=== PATIENT | female | born 1930 | race Caucasian/White ===

== ENCOUNTER → 2017-04-25 | Outpatient (CLI) | payer MEDICARE ==
[~2017-04-25] MED LIST: ASPI81TA11 PO; CALC500T21 PO; CIPR500T2 PO; COZA100T PO; CYAN1000P IM; FURO1TAB93 PO; LOPR100T2 PO; NORV10TA PO; OCUVTAB4 PO; POTA20IN3 PO; SIMV20 PO; SYST0.4D2 EACH EYE
[2017-04-25 13:19] LABS: AUTOMATED NEUTROPHIL # 2.6 TH/MM3 (1.8-7.7); BASOPHIL % 0.8 % (0.0-2.0); EOSINOPHIL # 0.2 TH/MM3 (0-0.4); EOSINOPHIL % 3.7 % (0.0-4.0); HEMATOCRIT 36.5 % (35.0-46.0); HEMO FLAGS DIFF FINAL; LYMPHOCYTE # 1.4 TH/MM3 (1.0-4.8); MEAN CELL VOLUME 92.4 FL (80.0-100.0); MEAN CORPUSCULAR HGB CONC 32.4 % (32.0-36.0); NEUT % 54.5 % (16.0-70.0); PLATELET COUNT 178 TH/MM3 (150-450); RED BLOOD COUNT 3.95 MIL/MM3 (4.00-5.30); RED CELL DISTRIBUTION WIDTH 14.5 % (11.6-17.2); WHITE BLOOD COUNT 4.8 TH/MM3 (4.0-11.0)
[2017-04-25 13:30] LABS: ANION GAP 10 MEQ/L (5-15); AST (GOT) 30 U/L (15-37); BICARBONATE 27.5 MEQ/L (21.0-32.0); BLOOD UREA NITROGEN 17 MG/DL (7-18); CHLORIDE 104 MEQ/L (98-107); GLOMERULAR FILTRATION RATE 102 ML/MIN (>89); GLUCOSE,FASTING 89 MG/DL (74-99); POTASSIUM 3.7 MEQ/L (3.5-5.1); SODIUM (NA) 141 MEQ/L (136-145)
[2017-04-25 13:41] LABS: ALKALINE PHOSPHATASE 91 U/L (45-117); ALT (GPT) 35 U/L (10-53); HDL CHOLESTEROL 116.5 MG/DL (40.0-60.0); LDL CHOLESTEROL 65 MG/DL (0-99); TOTAL BILIRUBIN ADULT 0.8 MG/DL (0.2-1.0)
== END ==
LOC: PLAB 08:05
PROVIDERS: ATTEND Internal Medicine
DX: I48.0 Paroxysmal atrial fibrillation (principal); I10 Essential (primary) hypertension
CPT/HCPCS: 36415; 80053; 80061; 84443; 85025

== ENCOUNTER 2017-08-06 08:34 | Observation (INO) | payer MEDICARE ==
[~2017-08-06] VITALS: Ht 154.9 cm; Wt 58.1 kg
[2017-08-06] VITALS (8 sets, daily range): BP systolic 149–158; BP diastolic 72–81; PULSE 59–63; RESP 16–20; TEMP 97–98.1; O2SAT 97–98
[2017-08-06] MEDS ORDERED: LOSA100T PO (09:04)
[2017-08-06] MEDS ORDERED: SIMV20TA PO (09:04)
[2017-08-06] MEDS ORDERED: AMLO5 PO (09:04)
[2017-08-06] MEDS ORDERED: METO25TA3 PO (09:04)
[2017-08-06] MEDS ORDERED: XARE20TA PO (09:04)
[2017-08-06] MEDS ORDERED: CALC1TAB55 PO (09:04)
[2017-08-06] MEDS ORDERED: OCUVTAB4 PO (09:04)
[2017-08-06] MEDS ORDERED: SODIUM CHLORIDE 0.9% FLUSH 10 ML FLUSH IVF PRN (09:30)
[2017-08-06 09:46] LABS: AUTOMATED NEUTROPHIL # 4.8 TH/MM3 (1.8-7.7); BASOPHIL # 0.1 TH/MM3 (0-0.2); BASOPHIL % 0.9 % (0.0-2.0); EOSINOPHIL # 0.1 TH/MM3 (0-0.4); EOSINOPHIL % 1.4 % (0.0-4.0); HEMATOCRIT 36.4 % (35.0-46.0); HEMO FLAGS DIFF FINAL; LYMPH % 19.6 % (9.0-44.0); LYMPHOCYTE # 1.4 TH/MM3 (1.0-4.8); MEAN CORPUSCULAR HEMOGLOBIN 30.5 PG (27.0-34.0); MEAN CORPUSCULAR HGB CONC 33.2 % (32.0-36.0); MONO % 8.3 % (0.0-8.0); NEUT % 69.8 % (16.0-70.0); PLATELET COUNT 204 TH/MM3 (150-450); RED BLOOD COUNT 3.96 MIL/MM3 (4.00-5.30); RED CELL DISTRIBUTION WIDTH 13.4 % (11.6-17.2)
[2017-08-06 09:57] LABS: CHLORIDE 104 MEQ/L (98-107); POTASSIUM 4.2 MEQ/L (3.5-5.1); SODIUM (NA) 139 MEQ/L (136-145)
[2017-08-06 09:58] LABS: ANION GAP 8 MEQ/L (5-15); BICARBONATE 27.3 MEQ/L (21.0-32.0); INTERNATIONAL NORMALIZED RATIO 1.1 RATIO; PROTHROMBIN TIME - PATIENT 12.7 SEC (9.8-11.6)
[2017-08-06 09:59] LABS: BLOOD UREA NITROGEN 18 MG/DL (7-18)
[2017-08-06 10:02] LABS: GLOMERULAR FILTRATION RATE 89 ML/MIN (>89)
--- NOTE | 2017-08-06 10:13 | RADRPT ---
EXAM DATE/TIME: 08/06/2017 09:39 [facility] COMPARISON: CT BRAIN W/O CONTRAST, March 07, 2013, 11:22. INDICATIONS : General weakness. Evaluate for cerebrovascular accident. RADIATION DOSE: 61.67 CTDIvol (mGy) MEDICAL HISTORY : Carcinoma, lung. Myocardial infarction. Gastroesophageal reflux disease.Hypertension. [place] palsy. Traumatic brain injury. SURGICAL HISTORY : Craniotomy. Lobectomy. ENCOUNTER: Initial ACUITY: 1 day PAIN SCALE: 0/10 LOCATION: cranial TECHNIQUE: Multiple contiguous axial images were obtained of the head. Using automated exposure control and adj ustment of the mA and/or kV according to patient size, radiation dose was kept as low as reasonably a chievable to obtain optimal diagnostic quality images. DICOM format image data is available electro nically for review and comparison. FINDINGS: Noncontrast axial head CT demonstrates the ventricles to be normal in size and configuration with a n ormal sulcal pattern. No acute intracranial hemorrhage, acute cortical infarction, mass or midline sh ift is seen. Posterior fossa structures are unremarkable. Bone windows are unremarkable. There is previous left frontal craniotomy CONCLUSION: 1. No evidence of acute intracranial pathology. No masses are identified. Toy Rick MD on August 06, 2017 at 9:59 Board Certified Radiologist. This report was verified electronically.
--- NOTE | 2017-08-06 10:23 | RADRPT ---
EXAM DATE/TIME: 08/06/2017 09:31 [facility] COMPARISON: CHEST SINGLE AP, September 05, 2016, 6:44. INDICATIONS : Chest pain. MEDICAL HISTORY : Gastroesophageal reflux disease. Hypertension Carcinoma, lung. Transient ischemic accident, bells palsy, trigeminal neuralgia, atrial fibrilation, asthma, myocardial infarction SURGICAL HISTORY : Rt lower lobe resection, cardaic cath ENCOUNTER: Initial ACUITY: 1 day PAIN SCORE: 2/10 LOCATION: Bilateral chest FINDINGS: Mild cardiomegaly, minimal interstitial edema. No pneumothorax or pleural effusion. The portion of t he bony skeleton visualized is unremarkable. CONCLUSION: Mild compensated cardiomegaly. Boubacar Degroot MD FACR on August 06, 2017 at 10:21 Board Certified Radiologist. This report was verified electronically.
[2017-08-06 10:28] LABS: BLOOD, URINE NEG (NEG); GLUCOSE,URINE NEG (NEG); KETONE, URINE NEG (NEG); NITRITE,URINE POS (NEG); PH, URINE 6.5 (5.0-8.5)
[2017-08-06 10:33] LABS: METHOD OF COLLECTION CLEAN CATCH; RBC, URINE 0-3 /hpf (0-3); URINE COLOR YELLOW (YELLW/STRAW); WBC, URINE 100-200 /hpf (0-5)
[2017-08-06 10:34] LABS: BACTERIA, URINE MANY /hpf; COMMENT (UR) CULTURE INDICATED; CULTURE IF INDICATED CULTURE INDICATED; SQUAMOUS EPITHELIAL CELL URINE 0-5 /hpf (0-5)
--- NOTE | 2017-08-06 10:47 | PD ---
HPI Chief Complaint: General Weakness Time Seen by Provider: 08:40 Travel History International Travel<30 days: No Contact w/Intl Traveler<30days: No Traveled to known affect area: No History of Present Illness HPI 87-year-old female came to the emergency room with history of palpitations, chest pain for past 2 days. Yesterday she also noticed that right side of her face was having some tingling and numbness. Patient has multiple medical condition and issues. She was very concerned and hence decided to come to the emergency room. The chest pain comes and goes and it substernal. The tingling and numbness stayed for couple hours and then went away. Patient seems anxious. No radiation of the pain and it feels like burning sensation. Pain does not have any aggravating or relieving factors. Patient has history of paroxysmal atrial fibrillation and she is on Xarelto for that. Her last cardiac catheter was in 2009. [facility] Past Medical History Narrative Medical List of her past medical, surgical, social and family history reviewed from the nursing note. Hx Anticoagulant Therapy: Yes Arthritis: Yes (a couple of fingers sometimes) Asthma: Yes Atrial Fibrillation: Yes Autoimmune Disease: Yes (STAPH INFECTION) Blood Disorders: No Anxiety: No Depression: No Heart Rhythm Problems: Yes (occ. palpatations) Cancer: Yes (LUNG) Cardiac Catheterization: Yes (2009) Cardiovascular Problems: Yes (HTN, A FIB) High Cholesterol: Yes Chemotherapy: No Chest Pain: No Congestive Heart Failure: No COPD: No Cerebrovascular Accident: Yes (TIA) Diabetes: No Diminished Hearing: No Endocrine: No Gastrointestinal Disorders: Yes (GERD) GERD: Yes Glaucoma: No Genitourinary: No Headaches: Yes (trigeminal neuralgia) Hepatitis: No Hiatal Hernia: No Heparin Induced Thrombocytopen: No Hypertension: Yes Immune Disorder: No Implanted Vascular Access Dvce: No Kidney Stones: No Medical other: Yes (ALLERGIES. POST NASAL DRIP) Musculoskeletal: Yes (OCCAS NECK DISCOMFORT) Neurologic: Yes (SUBDURAL HEMATOMA, TRIGEMINAL NEURALGIA, MI'S PALSY) Psychiatric: No Reproductive: No Immunizations Current: Yes Migraines: No Myocardial Infarction: Yes Radiation Therapy: No Renal Failure: No Seizures: No Shingles: Yes Sickle Cell Disease: No Sleep Apnea: No Thyroid Disease: No Ulcer: No PNEUMOCCOCAL Vaccine (Year): 1 ?: Not Menopausal: Yes : 2 Para: 2 Past Surgical History Abdominal Surgery: No AICD: No Appendectomy: No Arteriovenous Shunt: No Body Medical Devices: NONE Cardiac Surgery: No Cholecystectomy: No Ear Surgery: No Endocrine Surgery: No Eye Surgery: Yes (BILATERAL CATARACT) Genitourinary Surgery: No Gynecologic Surgery: Yes Insulin Pump: No Joint Replacement: No Neurologic Surgery: Yes (CRANIOTOMY FOR SUBDURAL HEMORRHAGE, SURGERY FOR TRIGEMINAL NEURALGIA) Oral Surgery: No Pacemaker: No Thoracic Surgery: Yes (RIGHT LOWER LUNG RESECTION) Other Surgery: Yes Social History Alcohol Use: Yes (2 DRINKS, DAILY) Tobacco Use: No (QUIT 1960S) Substance Use: No Allergies-Medications (Allergen,Severity, Reaction): Coded Allergies: lorazepam (Unverified Allergy, Severe, Hallucinations, 08/06/17) nitroglycerin (Unverified Allergy, Severe, 08/06/17) NITRO PATCH. 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 Reported Meds & Prescriptions Reported Meds & Active Scripts Active Reported Metoprolol Tartrate 25 Mg Tab 25 Mg PO BID Preservision Areds (Multiple Vitamins W/ Minerals) 1 Tab 2 Tab PO DAILY Calcium 500 +D3 (Calcium Carbonate-Cholecalciferol) 500-600 Mg-Unit Tab 1 Tab PO DAILY Xarelto (Rivaroxaban) 20 Mg Tab 20 Mg PO DAILY Simvastatin 20 Mg Tab 20 Mg PO DAILY Losartan (Losartan Potassium) 100 Mg Tab 100 Mg PO DAILY Norvasc (Amlodipine Besylate) 5 Mg Tab 5 Mg PO DAILY Narrative Medication List of her home medications are reviewed from the nursing note. Review of Systems Except as stated in HPI: all other systems reviewed are Neg Physical Exam Narrative GENERAL: Awake, alert, elderly, anxious, mild distress SKIN: Focused skin assessment warm/dry. HEAD: Atraumatic. Normocephalic. EYES: Pupils equal and round. No scleral icterus. No injection or drainage. ENT: No nasal bleeding or discharge. Mucous membranes pink and moist. NECK: Trachea midline. No JVD. CARDIOVASCULAR: Regular rate and rhythm. No murmur appreciated. RESPIRATORY: No accessory muscle use. Clear to auscultation. Breath sounds equal bilaterally. GASTROINTESTINAL: Abdomen soft, non-tender, nondistended. Hepatic and splenic margins not palpable. MUSCULOSKELETAL: No obvious deformities. No clubbing. No cyanosis. No edema. NEUROLOGICAL: Awake and alert. No obvious cranial nerve deficits. Motor grossly within normal limits. Normal speech. PSYCHIATRIC: Appropriate mood and affect; insight and judgment normal. Data Data Last Documented VS Orders Orders Prothrombin Time / Inr (Pt) (08/06/17 09:18) Complete Blood Count With Diff (08/06/17 09:18) Basic Metabolic Panel (Bmp) (08/06/17 09:18) Troponin I (08/06/17 09:18) Urinalysis - C+S If Indicated (08/06/17 09:18) Ct Brain W/O Iv Contrast(Rout) (08/06/17 09:18) Chest, Single Ap (08/06/17 09:18) Ecg Monitoring (08/06/17 09:18) Iv Access Insert/Monitor (08/06/17 09:18) Oximetry (08/06/17 09:18) Sodium Chloride 0.9% Flush (Ns Flush) (08/06/17 09:30) Urine Culture (08/06/17 09:55) Admit Order (Ed Use Only) (08/06/17 10:51) Labs Laboratory Tests Test 08/06/17 09:30 08/06/17 09:55 White Blood Count 7.0 TH/MM3 Red Blood Count 3.96 MIL/MM3 Hemoglobin 12.1 GM/DL Hematocrit 36.4 % Mean Corpuscular Volume 92.0 FL Mean Corpuscular Hemoglobin 30.5 PG Mean Corpuscular Hemoglobin Concent 33.2 % Red Cell Distribution Width 13.4 % Platelet Count 204 TH/MM3 Mean Platelet Volume 8.5 FL Neutrophils (%) (Auto) 69.8 % Lymphocytes (%) (Auto) 19.6 % Monocytes (%) (Auto) 8.3 % Eosinophils (%) (Auto) 1.4 % Basophils (%) (Auto) 0.9 % Neutrophils # (Auto) 4.8 TH/MM3 Lymphocytes # (Auto) 1.4 TH/MM3 Monocytes # (Auto) 0.6 TH/MM3 Eosinophils # (Auto) 0.1 TH/MM3 Basophils # (Auto) 0.1 TH/MM3 CBC Comment DIFF FINAL Differential Comment Prothrombin Time 12.7 SEC Prothromb Time International Ratio 1.1 RATIO Blood Urea Nitrogen 18 MG/DL Creatinine 0.63 MG/DL Random Glucose 101 MG/DL Calcium Level 8.8 MG/DL Sodium Level 139 MEQ/L Potassium Level 4.2 MEQ/L Chloride Level 104 MEQ/L Carbon Dioxide Level 27.3 MEQ/L Anion Gap 8 MEQ/L Estimat Glomerular Filtration Rate 89 ML/MIN Hemoglobin A1c 5.6 % Troponin I LESS THAN 0.02 NG/ML Urine Collection Type CLEAN CATCH Urine Color YELLOW Urine Turbidity SLIGHT Urine pH 6.5 Urine Specific [place] 1.009 Urine Protein NEG mg/dL Urine Glucose (UA) NEG mg/dL Urine Ketones NEG mg/dL Urine Occult Blood NEG Urine Nitrite POS Urine Bilirubin NEG Urine Leukocyte Esterase MOD Urine RBC 0-3 /hpf Urine WBC 100-200 /hpf Urine WBC Clumps MOD Urine Squamous Epithelial Cells 0-5 /hpf Urine Bacteria MANY /hpf Microscopic Urinalysis Comment CULTURE INDICATED Urine Collection Time 09:55 MDM Medical Decision Making Medical Screen Exam Complete: Yes Emergency Medical Condition: Yes Medical Record Reviewed: Yes Interpretation(s) Twelve-lead EKG was reviewed by me. Normal sinus rhythm, normal axis, LVH by voltage criteria, lateral T wave inversions. Heart rate of 68 bpm. Differential Diagnosis ACS, non-STEMI, TIA, UTI, electrolyte abnormalities Narrative Course 10:30 AM blood test results were back and within acceptable limit. UA is clear. CT head is negative for any acute bleed. I would admit her for TIA at this point. Procedures EKG Prior to Arrival: No Diagnosis Primary Impression: TIA (transient ischemic attack) Qualified Codes: G45.9 - Transient cerebral ischemic attack, unspecified Additional Impression: Chest pain Qualified Codes: R07.9 - Chest pain, unspecified Admitting Information Admitting Physician Requests: Cara Grady MD Aug 06, 2017 10:47
[2017-08-06] MEDS ORDERED: ENALAPRILAT 1.25 MG/ML VIAL IV PUSH PRN (11:15)
[2017-08-06] MEDS ORDERED: SODIUM CHLORIDE 0.9% FLUSH 5 ML FLUSH IV FLUSH PRN (11:15)
[2017-08-06] MEDS ORDERED: GLUCAGON 1 MG/ML VIAL OTHER PRN (11:15)
[2017-08-06] MEDS ORDERED: DEXTROSE 50% IN WATER 50 ML VIAL(D50) IV PUSH PRN (11:15)
[2017-08-06] MEDS: INSULIN ASPART SUPPLEMENTAL SCALE SQ SCH ×3 (12:00→21:00)
--- NOTE | 2017-08-06 15:58 | RADRPT ---
EXAM DATE/TIME: 08/06/2017 15:23 [facility] COMPARISON: US CAROTID ARTERIES, December 11, 2011, 13:40. EXTERNAL COMPARISON : [facility], US CAROTID ARTERIES, December 08, 2009 INDICATIONS : Cerebrovascular accident. MEDICAL HISTORY : Hypertension. Gastroesophageal reflux disease. Hypercholesterolemia. Subdural h ematoma. Trigeminal neuralgia. Hartley's palsy. tia. atrial fibrillation. anticoagulant therapy. lung ca ncer. SURGICAL HISTORY : Cataracts removed. Craniotomy. Surgery for trigeminal neuralgia. Cardiac catheterization. Right lower lung resection. ENCOUNTER: Subsequent ACUITY: 1 day PAIN SCORE: 1/10 LOCATION: Bilateral neck PEAK SYSTOLIC VELOCITIES (cm/sec): ICA/CCA RATIO: Right: 1.8 Left: 1.5 ICA: Right: 104 Left: 77 CCA: Right: 57 Left: 52 ECA: Right: 55 Left: 42 VERTEBRAL: Right: 33 antegrade Left: 26 antegrade Elevated flow velocities and ICA/CCA ratios have been found to correlate with increased degrees of vessel stenosis, calculated as percentage of diameter relative to a normal segment of distal ICA/CCA FINDINGS: RIGHT CAROTID: There is minimal elevated ratio on the right with normal velocities. Moderate calcific plaque is noted noted. LEFT CAROTID: Moderate calcific plaque. No significant stenosis is visualized. The waveforms are within normal limits. VERTEBRAL ARTERIES: Antegrade flow is seen in both vertebral arteries. MISCELLANEOUS: None. CONCLUSION: Progression of the calcific plaque borderline significant on the right. Boubacar Degroot MD FACR on August 06, 2017 at 15:55 Board Certified Radiologist. This report was verified electronically.
--- NOTE | 2017-08-06 16:11 | RADRPT ---
EXAM DATE/TIME: 08/06/2017 14:42 [facility] COMPARISON: MRI BRAIN W/O CONTRAST, June 13, 2013, 8:46. INDICATIONS : Right sided weakness. MEDICAL HISTORY : Carcinoma, lung. Hypertension. SURGICAL HISTORY : Lobectomy. Craniotomy. ENCOUNTER: Initial ACUITY: 2 day PAIN SCORE: 0/10 LOCATION: Head TECHNIQUE: Multiplanar, multisequence MRI of the brain was performed without contrast. FINDINGS: MRI of the brain is performed in sagittal, axial and coronal planes. The craniocervical junction and midline structures are unremarkable. Diffusion weighted images demonstrate no abnormality. There is n o evidence of acute cortical infarction, acute hemorrhage, mass effect or midline shift is seen. Ther e is periventricular hyperintensity on the T2 weighted images consistent with small vessel vascular d isease slightly more than expected in a patient of this age. Posterior fossa structures are unremarka ble. CONCLUSION: 1. No evidence of acute intracranial pathology. Chronic ischemic changes as above. Toy Rick MD on August 06, 2017 at 15:55 Board Certified Radiologist. This report was verified electronically.
--- NOTE | 2017-08-06 16:12 | RADRPT ---
EXAM DATE/TIME: 08/06/2017 14:42 [facility] COMPARISON: No previous studies available for comparison. INDICATIONS : Right sided weakness. MEDICAL HISTORY : Carcinoma, lung. Hypertension. SURGICAL HISTORY : Lobectomy. Craniotomy. ENCOUNTER: Initial ACUITY: 2 day PAIN SCORE: 0/10 LOCATION: head Please note a normal MRA of the brain does not entirely exclude the possibility of a small aneurysm, nor the possibility of distal intracranial vessel disease. TECHNIQUE: 3D time of flight MRA was performed. Source images, multiplanar STS MIP, and 3D volume MIP reconstru ctions were reviewed. FINDINGS: There is excellent visualization of the major intracranial arteries out to the second-order branch ve ssels. There is no evidence for aneurysm, vessel truncation or stenosis, and no evidence for vascula r malformation. CONCLUSION: 1. Unremarkable MR angiography of the brain. Toy Rick MD on August 06, 2017 at 16:09 Board Certified Radiologist. This report was verified electronically.
[2017-08-06] MEDS ORDERED: cefTRIAXone INJ 1,000 MG in SODIUM CHLORIDE 0.9% INJ 100 ML IV SCH (17:00)
--- NOTE | 2017-08-06 18:00 | HHI.HP ---
[facility] Ty Mathews MD Admission Diagnosis TIA, chest Diagnoses: (1) Paresthesia (2) Chest pain Chief Complaint: Paresthesia, right hand, right upper lip numbness. Travel History International Travel<30 Days: No Contact w/Intl Traveler <30 Da: No Traveled to Known Affected Are: No History of Present Illness Written by Rojelio Pearce, acting as scribe for Dr. Lee on 08/06/17 at 17: 50. 87-year-old female with known history of paroxysmal atrial fibrillation, hypertension, history CVA, history of subdural hematoma, trigeminal neuralgia, history of lung cancer who presented to the emergency department because of neurological symptoms. Patient states that she was in her normal state of health until yesterday morning she got out of bed she noticed that the top part of the right side of her head with had a tingling sensation that she developed a right hand, right upper lip numbness which lasted for a couple seconds and went away on its own. She indicates that she does have intermittent chest discomfort which she describes a numbness around her upper abdomen and lower chest. She does go to her own railroad brake operator Dr. Richard, she indicates that every year he does a full workup to include stress test and echocardiogram. She states that her last workup was done in November/ December of this year and everything was normal. She states that she just saw her railroad brake operator 1 month ago. She denies any associated symptoms with this chest discomfort. She denies any nausea, vomiting, diaphoresis, shortness of breath, dyspnea, dizziness. Because of the patient's cardiac history, history of CVA/TIA is recommended by the ER physician that the patient be observed in the hospital for further evaluation and management. Review of Systems Cardiovascular: COMPLAINS OF: Chest pain Neurologic: COMPLAINS OF: Paresthesias Except as stated in HPI: all other systems reviewed are Neg Past Family Social History Past Medical History Paroxysmal atrial fibrillation Hypertension History of CVA/TIA History of lung cancer Gastroesophageal reflux History of subdural hematoma History of trigeminal neuralgia History of Hartley's palsy History of shingles Past Surgical History Bilateral cataract surgery Surgery for trigeminal neuralgia Surgery for evacuation of subdural hematoma Right lower lung lobectomy Allergies: Coded Allergies: lorazepam (Unverified Allergy, Severe, Hallucinations, 08/06/17) nitroglycerin (Unverified Allergy, Severe, 08/06/17) NITRO PATCH. 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 She quit smoking in 1949. Denies any illicit drugs Physical Exam Vital Signs Vital Signs Date Time Temp Pulse Resp B/P (MAP) Pulse Ox O2 Delivery O2 Flow Rate FiO2 08/06/17 17:13 59 08/06/17 13:32 98 21 08/06/17 12:21 08/06/17 10:14 60 16 158/72 (100) 98 Room Air 08/06/17 09:36 98 Room Air 08/06/17 08:54 98.1 61 18 149/81 (103) 98 Physical Exam GENERAL: Well-developed, well-nourished, in no acute distress. alert and orientated HEENT: Head is normocephalic without any lesions or masses noted. Facial features are symmetric. Eyes: Pupils equal round reactive to light. Extraocular muscles are intact. Conjunctivae were clear. Oropharyngeal: Pharynx without any erythema edema. Tongue is midline without deviation. Buccal mucosa is moist without any masses or lesions NECK: Supple without any masses. Trachea midline no deviation. No JVD, no bruits are appreciated CARDIAC: Regular rhythm, regular rate. S1/S2 are heard. No murmurs gallops or rubs. LUNGS: Clear to auscultation bilaterally. No wheeze, rhonchi or rales. No use of accessory muscles on inspiration or expiration. ABDOMEN: Soft, nontender. Nondistended. Bowel sounds heard in all 4 quadrants. No organomegaly or masses. Negative rebound, negative guarding EXTREMITIES: No edema, pulses are equal bilaterally. No cyanosis or clubbing NEUROLOGY: Mood and affect appear appropriate. Cranial nerves II through XII grossly intact. Muscle strength 5/5 in upper and lower extremities bilaterally. Deep tendon reflexes are 2+ in upper and lower extremities bilaterally. Laboratory Laboratory Tests Test 08/06/17 09:30 08/06/17 09:55 White Blood Count 7.0 Red Blood Count 3.96 Hemoglobin 12.1 Hematocrit 36.4 Mean Corpuscular Volume 92.0 Mean Corpuscular Hemoglobin 30.5 Mean Corpuscular Hemoglobin Concent 33.2 Red Cell Distribution Width 13.4 Platelet Count 204 Mean Platelet Volume 8.5 Neutrophils (%) (Auto) 69.8 Lymphocytes (%) (Auto) 19.6 Monocytes (%) (Auto) 8.3 Eosinophils (%) (Auto) 1.4 Basophils (%) (Auto) 0.9 Neutrophils # (Auto) 4.8 Lymphocytes # (Auto) 1.4 Monocytes # (Auto) 0.6 Eosinophils # (Auto) 0.1 Basophils # (Auto) 0.1 CBC Comment DIFF FINAL Differential Comment Prothrombin Time 12.7 Prothromb Time International Ratio 1.1 Blood Urea Nitrogen 18 Creatinine 0.63 Random Glucose 101 Calcium Level 8.8 Sodium Level 139 Potassium Level 4.2 Chloride Level 104 Carbon Dioxide Level 27.3 Anion Gap 8 Estimat Glomerular Filtration Rate 89 Troponin I LESS THAN 0.02 Urine Collection Type CLEAN CATCH Urine Color YELLOW Urine Turbidity SLIGHT Urine pH 6.5 Urine Specific [place] 1.009 Urine Protein NEG Urine Glucose (UA) NEG Urine Ketones NEG Urine Occult Blood NEG Urine Nitrite POS Urine Bilirubin NEG Urine Leukocyte Esterase MOD Urine RBC 0-3 Urine WBC 100-200 Urine WBC Clumps MOD Urine Squamous Epithelial Cells 0-5 Urine Bacteria MANY Microscopic Urinalysis Comment CULTURE INDICATED Urine Collection Time 09:55 Date/Time Source Procedure Growth Status 08/06/17 09:55 Urine Clean Catch Urine Culture Pending Received Result Diagram: 08/06/1792908/06/17929 Imaging Last Impressions Head CT 08/06/17917 Signed Impressions: Service Date/Time: Sunday, August 06, 2017 09:39 - CONCLUSION: 1. No evidence of acute intracranial pathology. No masses are identified. Toy Rick MD Chest X-Ray 08/06/17917 Signed Impressions: Service Date/Time: Sunday, August 06, 2017 09:31 - CONCLUSION: Mild compensated cardiomegaly. Boubacar Dergoot MD FACR Head Magnetic Resonance Angiography 08/06/17 Signed Impressions: Service Date/Time: Sunday, August 06, 2017 14:42 - CONCLUSION: 1. Unremarkable MR angiography of the brain. Toy Rick MD Carotid Artery Ultrasound 08/06/17 Signed Impressions: Service Date/Time: Sunday, August 06, 2017 15:23 - CONCLUSION: Progression of the calcific plaque borderline significant on the right. Boubacar Degroot MD FACR Brain MRI 08/06/17 Signed Impressions: Service Date/Time: Sunday, August 06, 2017 14:42 - CONCLUSION: 1. No evidence of acute intracranial pathology. Chronic ischemic changes as above. Toy Rick MD Capmikali VTE Risk Assessment Caprini VTE Risk Assessment: Mod/High Risk (score >= 2) Caprini Risk Assessment Model Point Value = 1 Point Value = 2 Point Value = 3 Point Value = 5 Age 41-60 Minor surgery BMI > 25 kg/m2 Swollen legs Varicose veins or History of unexplained or recurrent spontaneous Oral contraceptives or hormone replacement Sepsis (< 1 month) Serious lung disease, including pneumonia (< 1 month) Abnormal pulmonary function Acute myocardial infarction Congestive heart failure (< 1 month) History of inflammatory bowel disease Medical patient at bed rest Age 61-74 Arthroscopic surgery Major open surgery (> 45 min) Laparoscopic surgery (> 45 min) Malignancy Confined to bed (> 72 hours) Immobilizing plaster cast Central venous access Age >= 75 History of VTE Family history of VTE Factor V Leiden Prothrombin [id number] Lupus anticoagulant Anticardiolipin antibodies Elevated serum homocysteine Heparin-induced thrombocytopenia Other congenital or acquired thrombophilia Stroke (< 1 month) Elective arthroplasty Hip, pelvis, or leg fracture Acute spinal cord injury (< 1 month) Prophylaxis Regimen Total Risk Factor Score Risk Level Prophylaxis Regimen 0-1 Low Early ambulation 2 Moderate Order ONE of the following: *Sequential Compression Device (SCD) *Heparin 5000 units SQ BID 3-4 Higher Order ONE of the following medications: *Heparin 5000 units SQ TID *Enoxaparin/Lovenox 40 mg SQ daily (WT < 150 kg, CrCl > 30 mL/min) *Enoxaparin/Lovenox 30 mg SQ daily (WT < 150 kg, CrCl > 10-29 mL/min) *Enoxaparin/Lovenox 30 mg SQ BID (WT < 150 kg, CrCl > 30 mL/min) AND/OR *Sequential Compression Device (SCD) 5 or more Highest Order ONE of the following medications: *Heparin 5000 units SQ TID (Preferred with Epidurals) *Enoxaparin/Lovenox 40 mg SQ daily (WT < 150 kg, CrCl > 30 mL/min) *Enoxaparin/Lovenox 30 mg SQ daily (WT < 150 kg, CrCl > 10-29 mL/min) *Enoxaparin/Lovenox 30 mg SQ BID (WT < 150 kg, CrCl > 30 mL/min) AND *Sequential Compression Device (SCD) Assessment and Plan Assessment and Plan 87 year-old female who presented a symptomatic with symptoms of paresthesia, numbness to the right hand, right upper lip yesterday lasted for seconds, chronic intermittent chest discomfort Neurological symptoms to include paresthesia, numbness in right hand and right upper lip CT scan was performed which did not indicate any acute abnormality MRI/MRA of the brain was performed which did not indicate any acute abnormality Carotid ultrasound performed which did not indicate any acute abnormality We'll obtain echocardiogram Patient is already anticoagulated on Xarelto, We'll get PT/OT/ST evaluations Patient deferring any neurology evaluation. She will follow-up with her neurologist Dr. grant in [place] Chronic intermittent chest discomfort Thus far patient does not have any elevated troponin, EKG changes Patient has had workup done by her railroad brake operator within the last 6 months with echocardiogram and stress test Discussed with Dr. Richard, he indicates that would only drink cardiac enzymes if those are negative she'll be discharged home and follow-up with him next week. He indicates that patient has good cardiac history. He has done 2 cardiac catheterizations on her with less than 20% disease noted. She has good ejection fraction on echocardiogram. He indicates highly unlikely this is related to any cardiac etiology Hypertension, paroxysmal atrial fibrillation, Continue home medications DVT prevention Continue Xarelto This note was transcribed by JALIL Kyle. I, Dr. Gladis Lee personally performed the history, physical exam, and medical decision making; and confirmed the accuracy of the information in the transcribed note. Authenticated by Dr. Gladis Lee on 08/06/17 at 17:50. Problem Qualifiers (1) Chest pain: Qualified Codes: R07.9 - Chest pain, unspecified Rojelio Pearce Aug 06, 2017 18:00 Gladis Lee MD Aug 06, 2017 18:21
[2017-08-06 19:46] LABS: CREATINE KINASE 69 U/L (26-192)
[2017-08-06 20:25] LABS: HEMOGLOBIN A1b 1.6 %; HEMOGLOBIN Ao 85.5 %; HEMOGLOBIN P3 3.9 %
[2017-08-06] MEDS: SODIUM CHLORIDE 0.9% FLUSH 5 ML FLUSH IV FLUSH SCH (22:00)
[2017-08-06] MEDS: METOPROLOL TARTRATE 25 MG TAB PO SCH (22:03)
[2017-08-07] VITALS: BP 172/79; PULSE 59; RESP 20; TEMP 96; O2SAT 98
[2017-08-07 04:00] VITALS: BP 148/71; PULSE 53; RESP 20; TEMP 97; O2SAT 98
--- NOTE | 2017-08-07 07:45 | EKG ---
Date Performed: 08/06/2017 Time Performed: 18:38:02 PTAGE: 87 years EKG: Sinus rhythm WITH FREQUENT VENTRICULAR PREMATURE COMPLEXES NONSPECIFIC ST & T-WAVE ABNORMALITY ABNORMAL RHYTHM EC G Since PREVIOUS TRACING , now frequent PVC's PREVIOUS TRACIN08/06/2017 08.46 DOCTOR: Maira Luke Interpretating Date/Time 08/07/2017 07:43:26
[2017-08-07 08:00] VITALS: BP 128/68; PULSE 79; RESP 21; TEMP 96.8; O2SAT 99
[2017-08-07] MEDS: INSULIN ASPART SUPPLEMENTAL SCALE SQ SCH ×2 (08:00→12:00)
--- NOTE | 2017-08-07 08:07 | EKG ---
Date Performed: 08/06/2017 Time Performed: 08:46:11 PTAGE: 87 years EKG: Sinus rhythm ST DEVIATION AND MODERATE T-WAVE ABNORMALITY, CONSIDER LATERAL ISCHEMIA ABNORMAL ECG Since previous tracing, no significant change noted NO PREVIOUS TRACING DOCTOR: Maira Luke Interpretating Date/Time 08/07/2017 08:06:21
[2017-08-07] MEDS ORDERED: MULTIVITAMINS/MINERALS THERAPEUTIC TAB PO SCH (09:00)
[2017-08-07] MEDS ORDERED: RIVAROXABAN 20 MG TAB PO SCH (09:00)
[2017-08-07] MEDS ORDERED: LOSARTAN 50 MG TAB PO SCH (09:00)
[2017-08-07] MEDS ORDERED: CALCIUM/VITAMIN D 250 MG/125 U TAB PO SCH (09:00)
[2017-08-07] MEDS ORDERED: amLODIPine BESYLATE 5 MG TAB PO SCH (09:00)
[2017-08-07] MEDS ORDERED: PRAVASTATIN SOD 40 MG TAB PO SCH (09:00)
[2017-08-07] MEDS: SODIUM CHLORIDE 0.9% FLUSH 5 ML FLUSH IV FLUSH SCH (09:00)
--- NOTE | 2017-08-07 09:08 | HHI.PR ---
Subjective Remarks In bed, feels much better today. No n/v/d/c. Says paresthesia resolved. No motor deficit. Back at her baseline. Has an appointment with her ophthalmology Dr. No jamila, sob, n/v/d/c. Objective Vitals Vital Signs Date Time Temp Pulse Resp B/P (MAP) Pulse Ox O2 Delivery O2 Flow Rate FiO2 08/07/17 04:00 97.0 53 20 148/71 (96) 98 08/07/17 00:00 96.0 59 20 172/79 (110) 98 08/06/17 22:20 98 21 08/06/17 20:00 63 08/06/17 20:00 97.4 62 20 151/74 (99) 97 08/06/17 17:13 59 08/06/17 16:00 97.0 60 155/78 (103) 98 08/06/17 13:32 98 21 08/06/17 12:21 08/06/17 10:14 60 16 158/72 (100) 98 Room Air 08/06/17 09:36 98 Room Air I/O 08/06/17 08/06/17 08/06/17 08/07/17 08/07/17 08/07/17 07:00 15:00 23:00 07:00 15:00 23:00 Intake Total 115 ml 480 ml Balance 115 ml 480 ml Intake Oral 480 ml IV Total 115 ml # Voids 1 2 # Bowel Movements 0 Result Diagram: 08/06/1792908/06/17929 Imaging Last Impressions Head CT 08/06/17917 Signed Impressions: Service Date/Time: Sunday, August 06, 2017 09:39 - CONCLUSION: 1. No evidence of acute intracranial pathology. No masses are identified. Toy Rick MD Chest X-Ray 08/06/17917 Signed Impressions: Service Date/Time: Sunday, August 06, 2017 09:31 - CONCLUSION: Mild compensated cardiomegaly. Boubacar Degroot MD FACR Head Magnetic Resonance Angiography 08/06/17 0000 Signed Impressions: Service Date/Time: Sunday, August 06, 2017 14:42 - CONCLUSION: 1. Unremarkable MR angiography of the brain. Toy Rick MD Carotid Artery Ultrasound 08/06/17 0000 Signed Impressions: Service Date/Time: Sunday, August 06, 2017 15:23 - CONCLUSION: Progression of the calcific plaque borderline significant on the right. Boubacar Degroot MD FACR Brain MRI 08/06/17 0000 Signed Impressions: Service Date/Time: Sunday, August 06, 2017 14:42 - CONCLUSION: 1. No evidence of acute intracranial pathology. Chronic ischemic changes as above. Toy Rick MD Objective Remarks GENERAL: Well-developed, well-nourished, in no acute distress. alert and orientated CARDIAC: Regular rhythm, regular rate. S1/S2 are heard. No murmurs gallops or rubs. LUNGS: Clear to auscultation bilaterally. No wheeze, rhonchi or rales. No use of accessory muscles on inspiration or expiration. ABDOMEN: Soft, nontender. Nondistended. Bowel sounds heard in all 4 quadrants. No organomegaly or masses. Negative rebound, negative guarding EXTREMITIES: No edema, pulses are equal bilaterally. No cyanosis or clubbing NEUROLOGY: Mood and affect appear appropriate. Cranial nerves II through XII grossly intact. Muscle strength 5/5 in upper and lower extremities bilaterally. Deep tendon reflexes are 2+ in upper and lower extremities bilaterally. A/P Problem List: (1) Paresthesia ICD Code: R20.2 - Paresthesia of skin (2) Chest pain ICD Code: R07.9 - Chest pain, unspecified Status: Acute Assessment and Plan 87 year-old female who presented a symptomatic with symptoms of paresthesia, numbness to the right hand, right upper lip yesterday lasted for seconds, chronic intermittent chest discomfort Neurological symptoms to include paresthesia, numbness in right hand and right upper lip CT scan was performed which did not indicate any acute abnormality MRI/MRA of the brain was performed which did not indicate any acute abnormality Carotid ultrasound performed which did not indicate any acute abnormality Echocardiogram reviewed and limited , dr Dela Cruz diastolic dysfunction. Per her cardiology to follow up with him as OP in 1 week Patient is already anticoagulated on Xarelto, PT/OT/ST evaluations Patient deferring any neurology evaluation. She will follow-up with her neurologist Dr. grant in [place] Chronic intermittent chest discomfort Thus far patient does not have any elevated troponin, EKG changes Patient has had workup done by her nurse advisor within the last 6 months with echocardiogram and stress test Discussed with Dr. Richard, he indicates that would only drink cardiac enzymes if those are negative she'll be discharged home and follow-up with him next week. He indicates that patient has good cardiac history. He has done 2 cardiac catheterizations on her with less than 20% disease noted. She has good ejection fraction on echocardiogram. He indicates highly unlikely this is related to any cardiac etiology. Echocardiogram reviewed and limited , dr Dela Cruz diastolic dysfunction. Per her cardiology to follow up with him as OP in 1 week Hypertension, paroxysmal atrial fibrillation, Continue home medications DVT prevention Continue Xarelto Discharge Planning DC home in stable condition to follow up as OP with PCP and consultants. Patient will f/u with her ophthalmology doctor has an appointment on Friday Dr Mcelroy. Also will follow up with her neurology in [place] as OP Activity ad sebastian as altagracia Diet: healthy heart Meds per med reconciliations Problem Qualifiers (1) Chest pain: Qualified Codes: R07.9 - Chest pain, unspecified Gladis Lee MD Aug 07, 2017 09:08
--- NOTE | 2017-08-07 09:56 | HHI.DCPOC ---
Discharge Care Plan Goals to Promote Your Health * To prevent worsening of your condition and complications * To maintain your health at the optimal level Directions to Meet Your Goals Take your medications as prescribed Follow your dietary instruction Follow activity as directed Keep your appointments as scheduled Take your immunizations and boosters as scheduled If your symptoms worsen call your PCP, if no PCP go to Urgent Care Center or Emergency Room Smoking is Dangerous to Your Health. Avoid second hand smoke Call the 24-hour hour crisis hotline for domestic abuse at Gladis Lee MD Aug 07, 2017 09:55
--- NOTE | 2017-08-07 09:59 | HHI.FF ---
Face to Face Verification Diagnosis: (1) TIA (transient ischemic attack) (2) Chest pain (3) Atrial fibrillation (4) Rectal bleeding (5) History of CVA (cerebrovascular accident) (6) Hx of cancer of lung (7) Hx of subdural hemorrhage Physical Therapy Order: Evaluate and Treat Home Health Nursing Order: Medical education Signs/symptoms of disease process Medication education-adverse effect Nursing assessment with vital signs I have seen patient Elisha Seymour on 08/07/17. My clinical findings support the need for the requested home health care services because: Ltd mobility - disease progression Deconditioned w/ increased weakness I certify that my clinical findings support that this patient is homebound because: Post-op weakness Hx COPD- exertion dyspnea/weakness Gladis Lee MD Aug 07, 2017 09:59
[2017-08-07] MEDS: METOPROLOL TARTRATE 25 MG TAB PO SCH (10:11)
[2017-08-07 13:58] LABS: HDL CHOLESTEROL 100.8 MG/DL (40.0-60.0)
--- NOTE | 2017-08-07 16:30 | ECHRPT ---
Indication: CVA/TIA CONCLUSIONS Normal left ventricular size. The left ventricular systolic function is grossly normal on limited imaging. Doppler parameters are consistent with impaired left ventricular relaxtion (grade 1 diastolic dysfun ction). Mild concentric left ventricular hypertrophy. The left atrial size is mildly dilated. Mitral annular calcification is present. Trace mitral valve regurgitation. Aortic valve sclerosis is present. No aortic valve stenosis. There is mild tricuspid valve regurgitation. Normal estimated pulmonary pressures. Trivial pulmonary valve regurgitation. There is no pericardial effusion. BP: 148 / 71 HR: Rhythm: Sinus MEASUREMENTS (Male / Female) Normal Values Technical Quality:Fair 2D ECHO LV Diastolic Diameter PLAX 1.6 cm 4.2 - 5.9 / 3.9 - 5.3 cm LV Systolic Diameter PLAX 0.8 cm IVS Diastolic Thickness 3.3 cm 0.6 - 1.0 / 0.6 - 0.9 cm LVPW Diastolic Thickness 1.1 cm 0.6 - 1.0 / 0.6 - 0.9 cm LV Relative Wall Thickness 2.8 LVOT Diameter 2.2 cm Aortic Root Diameter 3.2 cm LA Systolic Diameter LX 4.0 cm 3.0 - 4.0 / 2.7 - 3.8 cm M-MODE AV Cusp Separation MM 1.7 cm DOPPLER AV Peak Velocity 221.0 cm/s AV Peak Gradient 19.5 mmHg AV Mean Gradient 7.0 mmHg AV Velocity Time Integral 37.4 cm LVOT Peak Velocity 188.0 cm/s LVOT Peak Gradient 14.1 mmHg LVOT Velocity Time Integral 27.4 cm AV Area Cont Eq vti 2.8 cm AV Area Cont Eq pk 3.2 cm Mitral E Point Velocity 85.6 cm/s Mitral A Point Velocity 126.0 cm/s Mitral E to A Ratio 0.7 LV E' Lateral Velocity 6.8 cm/s Mitral E to LV E' Lateral Ratio 12.6 LV E' Septal Velocity 12.2 cm/s Mitral E to LV E' Septal Ratio 7.0 TR Peak Velocity 591.0 cm/s TR Peak Gradient 139.7 mmHg PV Peak Velocity 30.2 cm/s PV Peak Gradient 0.4 mmHg FINDINGS LEFT VENTRICLE Normal left ventricular size. The left ventricular systolic function is grossly normal on limited imaging. Doppler parameters are consistent with impaired left ventricular relaxtion (grade 1 diastolic dysfun ction). Mild concentric left ventricular hypertrophy. RIGHT VENTRICLE Normal right ventricular size and systolic function. LEFT ATRIUM The left atrial size is mildly dilated. RIGHT ATRIUM The right atrial size is normal. MITRAL VALVE Mitral annular calcification is present. Trace mitral valve regurgitation. AORTIC VALVE Aortic valve sclerosis is present. No aortic valve stenosis. TRICUSPID VALVE There is mild tricuspid valve regurgitation. Normal estimated pulmonary pressures. PULMONARY VALVE Trivial pulmonary valve regurgitation. PERICARDIUM There is no pericardial effusion. Ashish Sanders MD (Electronically Signed) Final Date:07 August 2017 16:29
== END 2017-08-07 14:08 | disposition home or self-care (01) ==
LOC: PHED 08:34 → PHEDA 10:52 → PH5A 12:15
PROVIDERS: ADMIT Hospitalist; ATTEND Hospitalist
DX: G45.9 Transient cerebral ischemic attack, unspecified (principal); I10 Essential (primary) hypertension; I48.0 Paroxysmal atrial fibrillation; R07.89 Other chest pain; R82.99 Other abnormal findings in urine; B96.89 Other specified bacterial agents as the cause of diseases classified elsewhere; R53.1 Weakness; J45.909 Unspecified asthma, uncomplicated; K21.9 Gastro-esophageal reflux disease without esophagitis; Z79.899 Other long term (current) drug therapy; G50.0 Trigeminal neuralgia; Z85.118 Personal history of other malignant neoplasm of bronchus and lung; Z79.01 Long term (current) use of anticoagulants; G51.0 Bell's palsy; R00.2 Palpitations
CPT/HCPCS: 70450; 70544; 70551; 71010; 80048; 80061; 81001; 82550; 82948; 83036; 84484; 85025; 85610; 87077; 87086; 87186; 92610; 93005; 93306; 93880; 96374; 97162; 97165; 97530; 99285; G0378; G8987; G8988; G8989; G8996; G8997; G8998; J0696

== ENCOUNTER 2017-08-11 08:23 | Emergency (ER) | payer MEDICARE ==
[~2017-08-11] VITALS: Ht 154.9 cm; Wt 60.0 kg
[~2017-08-11 08:23] MED LIST changes: +AMLO5 PO; -ASPI81TA11 PO; +CALC1TAB55 PO; -CALC500T21 PO; -CIPR500T2 PO; -COZA100T PO; -CYAN1000P IM; -FURO1TAB93 PO; -LOPR100T2 PO; +LOSA100T PO; +METO25TA3 PO; -NORV10TA PO; -POTA20IN3 PO; -SIMV20 PO; +SIMV20TA PO; -SYST0.4D2 EACH EYE; +XARE20TA PO
[2017-08-11 08:44] VITALS: BP 161/77; PULSE 63; RESP 16; TEMP 98; O2SAT 98
[2017-08-11 09:00] VITALS: RESP 18; O2SAT 100
[2017-08-11 09:05] VITALS: BP_SYST 120; BP_SYST 138; BP_DIAS 60; BP_DIAS 61; BP_DIAS 64; RESP 18
[2017-08-11] MEDS ORDERED: MECL-62 PO (09:32)
--- NOTE | 2017-08-11 09:33 | RADRPT ---
EXAM DATE/TIME: 08/11/2017 09:15 [facility] COMPARISON: CHEST SINGLE AP, August 06, 2017, 9:31. INDICATIONS : Dizziness MEDICAL HISTORY : Carcinoma, lung. Hypertension SURGICAL HISTORY : Lobectomy. Craniotomy. ENCOUNTER: Initial ACUITY: 4 - 6 days PAIN SCORE: 0/10 LOCATION: Bilateral chest FINDINGS: A single view of the chest demonstrates the lungs to be symmetrically aerated without evidence of mas s, infiltrate or effusion. The cardiomediastinal contours are unremarkable. Osseous structures are intact. CONCLUSION: No acute disease. Ravi Schroeder MD on August 11, 2017 at 9:31 Board Certified Radiologist. This report was verified electronically.
[2017-08-11 09:36] VITALS: BP 130/60; PULSE 52; RESP 18; O2SAT 100
--- NOTE | 2017-08-11 09:36 | PD ---
HPI Chief Complaint: Dizziness Time Seen by Provider: 08:32 Travel History International Travel<30 days: No Contact w/Intl Traveler<30days: No Traveled to known affect area: No History of Present Illness HPI patient recently admitted and had ct head/mri head/carotid us, etc for poss tia , pt was en route to see her eye doctor when she felt dizziness (room spinning sensation) along with tingling to top of her head. no loc, no fall, no marcelino/cp/n/ v/d PFSH Past Medical History Hx Anticoagulant Therapy: Yes Arthritis: Yes (a couple of fingers sometimes) Asthma: Yes Atrial Fibrillation: Yes Autoimmune Disease: Yes (STAPH INFECTION) Blood Disorders: No Anxiety: No Depression: No Heart Rhythm Problems: Yes (occ. palpatations) Cancer: Yes (LUNG) Cardiac Catheterization: Yes (2009) Cardiovascular Problems: Yes (HTN, A FIB) High Cholesterol: Yes Chemotherapy: No Chest Pain: No Congestive Heart Failure: No COPD: No Cerebrovascular Accident: Yes (TIA) Diabetes: No Diminished Hearing: No Endocrine: No Gastrointestinal Disorders: Yes (GERD) GERD: Yes Glaucoma: No Genitourinary: No Headaches: Yes (trigeminal neuralgia) Hepatitis: No Hiatal Hernia: No Heparin Induced Thrombocytopen: No Hypertension: Yes Immune Disorder: No Implanted Vascular Access Dvce: No Kidney Stones: No Medical other: Yes (ALLERGIES. POST NASAL DRIP) Musculoskeletal: Yes (OCCAS NECK DISCOMFORT) Neurologic: Yes (SUBDURAL HEMATOMA, TRIGEMINAL NEURALGIA, MI'S PALSY) Psychiatric: No Reproductive: No Immunizations Current: Yes Migraines: No Myocardial Infarction: Yes Radiation Therapy: No Renal Failure: No Seizures: No Shingles: Yes Sickle Cell Disease: No Sleep Apnea: No Thyroid Disease: No Ulcer: No PNEUMOCCOCAL Vaccine (Year): 1 ?: Not Menopausal: Yes : 2 Para: 2 Past Surgical History Abdominal Surgery: No AICD: No Appendectomy: No Arteriovenous Shunt: No Body Medical Devices: NONE Cardiac Surgery: No Cholecystectomy: No Ear Surgery: No Endocrine Surgery: No Eye Surgery: Yes (BILATERAL CATARACT) Genitourinary Surgery: No Gynecologic Surgery: Yes Insulin Pump: No Joint Replacement: No Neurologic Surgery: Yes (CRANIOTOMY FOR SUBDURAL HEMORRHAGE, SURGERY FOR TRIGEMINAL NEURALGIA) Oral Surgery: No Pacemaker: No Thoracic Surgery: Yes (RIGHT LOWER LUNG RESECTION) Other Surgery: Yes Social History Alcohol Use: Yes (2 DRINKS, DAILY) Tobacco Use: No (QUIT 1960S) Substance Use: No Allergies-Medications (Allergen,Severity, Reaction): Coded Allergies: lorazepam (Unverified Allergy, Severe, Hallucinations, 08/06/17) nitroglycerin (Unverified Allergy, Severe, 08/06/17) NITRO PATCH. 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; (pleural fluid) - 01/2007 codeine (Unverified Adverse Reaction, Severe, Nausea/Vomiting, 08/06/17) metronidazole (Unverified Adverse Reaction, Severe, Nausea/Vomiting, ) Reported Meds & Prescriptions Reported Meds & Active Scripts Active Reported Metoprolol Tartrate 25 Mg Tab 25 Mg PO BID Preservision Areds (Multiple Vitamins W/ Minerals) 1 Tab 2 Tab PO DAILY Calcium 500 +D3 (Calcium Carbonate-Cholecalciferol) 500-600 Mg-Unit Tab 1 Tab PO DAILY Xarelto (Rivaroxaban) 20 Mg Tab 20 Mg PO DAILY Simvastatin 20 Mg Tab 20 Mg PO DAILY Losartan (Losartan Potassium) 100 Mg Tab 100 Mg PO DAILY Norvasc (Amlodipine Besylate) 5 Mg Tab 5 Mg PO DAILY Review of Systems Except as stated in HPI: all other systems reviewed are Neg Physical Exam Narrative GENERAL: SKIN: Warm and dry. HEAD: Atraumatic. Normocephalic. EYES: Pupils equal and round. No scleral icterus. No injection or drainage. ENT: No nasal bleeding or discharge. Mucous membranes pink and moist. NECK: Trachea midline. No JVD. CARDIOVASCULAR: Regular rate and rhythm. RESPIRATORY: No accessory muscle use. Clear to auscultation. Breath sounds equal bilaterally. GASTROINTESTINAL: Abdomen soft, non-tender, nondistended. MUSCULOSKELETAL: Extremities without clubbing, cyanosis, or edema. No obvious deformities. NEUROLOGICAL: Awake and alert. No obvious cranial nerve deficits. Motor grossly within normal limits. Five out of 5 muscle strength in the arms and legs. Normal speech. PSYCHIATRIC: Appropriate mood and affect; insight and judgment normal. Data Data Last Documented VS Vital Signs Date Time Temp Pulse Resp B/P (MAP) Pulse Ox O2 Delivery O2 Flow Rate FiO2 08/11/17 09:05 50 18 138/64 (88) 53 18 138/60 (86) 52 18 120/61 (80) 08/11/17 08:44 98.0 98 Orders Orders Electrocardiogram (08/11/17 08:32) Chest, Single Ap (08/11/17 08:32) Iv Access Insert/Monitor (08/11/17 08:32) Ecg Monitoring (08/11/17 08:32) Oximetry (08/11/17 08:32) Orthostatic Vital Signs (08/11/17 08:32) MDM Medical Decision Making Medical Screen Exam Complete: Yes Emergency Medical Condition: Yes Medical Record Reviewed: Yes Interpretation(s) motion artifact but able to assess: sinus bradycardia, nl intervals, pvc, lvh and no stemi pattern Differential Diagnosis anemia v dehydration v vertigo Narrative Course upon recent review of multiple studies done on patient on last admit (aug 03- ) removes the differential of anemia/ich/dehydration/ patient was thoroughly evaluated prior and evaluated in department with neg orthostatics. patient not presently dizzy and able to ambulate without any difficulty, will d/c home and urge to f/u with all docs and include neurology Diagnosis Primary Impression: Vertigo Additional Instructions: additionally reccomend that you make/keep your appointment with your neurologist based out [facility] to further evaluate these symptoms that you continue to intermittently experience. Scripts Meclizine (Meclizine) 25 Mg Tab 25 MG PO TID Y for VERTIGO, #21 TAB 0 Refills Prov: Esdras Rojas MD 08/11/17 Disposition: 01 DISCHARGE HOME Condition: Stable Esdras Rojas MD Aug 11, 2017 09:36
--- NOTE | 2017-08-11 19:20 | EKG ---
Date Performed: 08/11/2017 Time Performed: 08:52:13 PTAGE: 87 years EKG: SINUS BRADYCARDIA WITH OCCASIONAL VENTRICULAR PREMATURE COMPLEXES LEFT VENTRICULAR HYPERTRO PHY AND ST-T CHANGE ABNORMAL ECG PREVIOUS TRACING : 08/06/2017 18.38 Compared to prior tracing no significant change DOCTOR: Benson Gruber Interpretating Date/Time 08/11/2017 19:18:16
== END 2017-08-11 09:47 | disposition home or self-care (01) ==
LOC: PHED 08:23
DX: R42 Dizziness and giddiness (principal); E78.00 Pure hypercholesterolemia, unspecified; I10 Essential (primary) hypertension; I48.91 Unspecified atrial fibrillation; Z86.73 Personal history of transient ischemic attack (TIA), and cerebral infarction without residual deficits; I25.2 Old myocardial infarction
CPT/HCPCS: 71010; 93005; 99284

== ENCOUNTER → 2017-08-12 | Outpatient (CLI) | payer MEDICARE ==
[~2017-08-12] MED LIST changes: +MECL-62 PO
[2017-08-12 15:45] LABS: BACTERIA, URINE RARE /hpf; BLOOD, URINE NEG (NEG); COMMENT (UR) CULT NOT INDICATED; CULTURE IF INDICATED CULT NOT INDICATED; GLUCOSE,URINE NEG (NEG); KETONE, URINE NEG (NEG); NITRITE,URINE NEG (NEG); PH, URINE 7.5 (5.0-8.5); SQUAMOUS EPITHELIAL CELL URINE 1 /hpf (0-5); URINE COLOR YELLOW (YELLW/STRAW)
== END ==
LOC: PLAB 12:34
PROVIDERS: ATTEND Internal Medicine
DX: R32 Unspecified urinary incontinence (principal)
CPT/HCPCS: 81001

== ENCOUNTER → 2017-10-08 | Outpatient (CLI) | payer MEDICARE ==
[~2017-10-08] VITALS: Ht 154.9 cm; Wt 58.2 kg
[~2017-10-08] MED LIST changes: +CHLORHEXIDINE GLUCONATE 2 % 1 PACK (2 CLOTHS) TOPICAL PRN; +DEXTROSE 5%-LACTATED RING INJ 1,000 ML IV SCH; +FEXO15TA PO; +LACTATED RINGER'S 1000 ML IV PRN; -MECL-62 PO; +METOPROLOL TARTRATE 25 MG TAB PO PRN; +POVIDONE IODINE 5% (ANTISEPSIS KIT) 4 APPLICATIONS EACH NARE PRN; +SODIUM CHLORID 0.9% 500 ML IV PRN
--- NOTE | 2017-10-08 11:13 | GIPROC ---
[facility] [address] [facility]. [facility], [address] COLONOSCOPY PROCEDURE REPORT EXAM DATE: 10/08/2017 PATIENT NAME: Elisha Seymour MR #: [id number] BIRTHDATE: 1930 ENDOSCOPIST: Wendy Martinez MD ORDER #: [id number] ENGRAVER ORNAMENTAL DESIGN: Becky Parr and Marlene Costa STATUS: outpatient INDICATIONS: The patient is a 87 yr old female here for a colonoscopy due to history of rectal polyp, constipation PROCEDURE PERFORMED: Colonoscopy with ablation Colonoscopy with polypectomy MEDICATIONS: None and Per Anesthesia. PREP QUALITY: 20 % obscured PREP TYPE:Other: ESTIMATED BLOOD LOSS: None CONSENT: The patient understands the risks and benefits of the procedure and understands that these risks include, but are not limited to: sedation, allergic reaction, infection, perforation and/or bleeding. Alternative means of evaluation and treatment include, among others: physical exam, x-rays, and/or surgical intervention. The patient elects to proceed with this endoscopic procedure. medical equipment was checked for proper function. Hand hygiene and appropriate measures for infection prevention was taken. After the risks, benefits and alternatives of the procedure were thoroughly explained, Informed consent was verified, confirmed and timeout was successfully executed by the treatment team. A digital exam revealed decreased sphincter tone and revealed external hemorrhoids The Pentax [id number] endoscope was introduced through the anus and advanced to the cecum, which was identified by both the appendix and ileocecal valve. The instrument was then slowly withdrawn as the colon was fully examined. COLON FINDINGS: Diverticulosis sigmoid,descending semisolid stool throughout colon agressive washing done questionable diminutive polyp-descending,semisolid stool covering, not seen after agressive washing polyp rectum-very close to nal verge-villous- 1 cm-hot snare polypectomy, ablation of base using both tip of snare and APC. Tortous colon. Restart Xaralto 10/09/2107 if no significant bleeding proctozone, lidocaine cream perianally-called at pharmacy. Retroflexed views revealed internal hemorrhoids and Retroflexed views revealed medium internal hemorrhoids The scope was then completely withdrawn from the patient and the procedure terminated. PROCEDURE WITHDRAWAL TIME:30minutes ADVERSE EVENTS: There were no complications. IMPRESSIONS: 1. Diverticulosis sigmoid,descending semisolid stool throughout colon agressive washing done questionable diminutive polyp-descending,semisolid stool covering, not seen after agressive washing polyp rectum-very close to nal verge-villous- 1 cm-hot snare polypectomy, ablation of base using both tip of snare and APC 2. Tortous colon 3. Retroflexed views revealed internal hemorrhoids 4. Retroflexed views revealed medium internal hemorrhoids 5. Revealed decreased sphincter tone 6. Revealed external hemorrhoids RECOMMENDATIONS: 1. Await biopsy results. Biopsy results will not be ready for 7-10 days. If you don't hear from us in two weeks, call our office for results. 2. Benefiber 2 tsp daily 3. High fiber diet 4. Probiotics from any [facility] or [employer] food store 5. Yearly rectal exams 6. Constipation precautions RECALL: 1. NONE 2. Return 3 months Flexible Sigmoidoscopy colon in 1 yr pending pathology report Wendy Martinez MD eSigned: Wendy Martinez MD 10/08/2017 11:12 AM cc: Josr Mathews M.D. PATIENT NAME: Elisha Seymour MR#: [id number]
[2017-10-08 11:52] VITALS: BP 122/82; PULSE 81; RESP 16; TEMP 97.6; O2SAT 97
--- NOTE | 2017-10-08 13:30 | EKG ---
Date Performed: 10/08/2017 Time Performed: 08:05:20 PTAGE: 87 years EKG: Sinus rhythm NONSPECIFIC T-WAVE ABNORMALITY BORDERLINE ECG Compared to prior electrocardiogram, Rate has increase d and PVCs are no longer present. PREVIOUS TRACING : 08/11/2017 08.52 DOCTOR: Rios Pressley Interpretating Date/Time 10/08/2017 13:29:19
== END ==
LOC: HEND 07:28
PROVIDERS: ATTEND Internal Medicine Gastroenterology
DX: K59.00 Constipation, unspecified (principal); Z86.010 Personal history of colon polyps; K64.4 Residual hemorrhoidal skin tags; K57.90 Diverticulosis of intestine, part unspecified, without perforation or abscess without bleeding; K62.1 Rectal polyp; R94.31 Abnormal electrocardiogram [ECG] [EKG]; K64.8 Other hemorrhoids
CPT/HCPCS: 88305; 93005

== ENCOUNTER → 2017-10-23 | Outpatient (CLI) | payer MEDICARE ==
[~2017-10-23] MED LIST changes: -CHLORHEXIDINE GLUCONATE 2 % 1 PACK (2 CLOTHS) TOPICAL PRN; -DEXTROSE 5%-LACTATED RING INJ 1,000 ML IV SCH; -LACTATED RINGER'S 1000 ML IV PRN; -METOPROLOL TARTRATE 25 MG TAB PO PRN; -POVIDONE IODINE 5% (ANTISEPSIS KIT) 4 APPLICATIONS EACH NARE PRN; -SODIUM CHLORID 0.9% 500 ML IV PRN
[2017-10-23 09:30] LABS: AUTOMATED NEUTROPHIL # 2.7 TH/MM3 (1.8-7.7); BASOPHIL % 0.9 % (0.0-2.0); EOSINOPHIL # 0.2 TH/MM3 (0-0.4); EOSINOPHIL % 3.2 % (0.0-4.0); HEMATOCRIT 36.4 % (35.0-46.0); HEMO FLAGS DIFF FINAL; LYMPH % 31.8 % (9.0-44.0); LYMPHOCYTE # 1.6 TH/MM3 (1.0-4.8); MEAN CELL VOLUME 93.2 FL (80.0-100.0); MEAN CORPUSCULAR HEMOGLOBIN 30.9 PG (27.0-34.0); MEAN CORPUSCULAR HGB CONC 33.1 % (32.0-36.0); MONO % 10.2 % (0.0-8.0); NEUT % 53.9 % (16.0-70.0); PLATELET COUNT 176 TH/MM3 (150-450); RED BLOOD COUNT 3.91 MIL/MM3 (4.00-5.30); RED CELL DISTRIBUTION WIDTH 13.8 % (11.6-17.2)
[2017-10-23 10:40] LABS: ANION GAP 8 MEQ/L (5-15); AST (GOT) 25 U/L (15-37); BICARBONATE 23.6 MEQ/L (21.0-32.0); BLOOD UREA NITROGEN 19 MG/DL (7-18); CHLORIDE 106 MEQ/L (98-107); GLOMERULAR FILTRATION RATE 96 ML/MIN (>89); GLUCOSE,FASTING 90 MG/DL (74-99); SODIUM (NA) 138 MEQ/L (136-145)
[2017-10-23 10:45] LABS: ALKALINE PHOSPHATASE 87 U/L (45-117); ALT (GPT) 24 U/L (10-53); HDL CHOLESTEROL 90.7 MG/DL (40.0-60.0); LDL CHOLESTEROL 53 MG/DL (0-99); TOTAL BILIRUBIN ADULT 0.4 MG/DL (0.2-1.0)
== END ==
LOC: PLAB 07:52
PROVIDERS: ATTEND Internal Medicine
DX: E78.00 Pure hypercholesterolemia, unspecified (principal)
CPT/HCPCS: 36415; 80053; 80061; 85025

== ENCOUNTER → 2018-01-28 | Outpatient (CLI) | payer MEDICARE ==
[~2018-01-28] VITALS: Ht 149.9 cm; Wt 56.8 kg
[~2018-01-28] MED LIST changes: +CHLORHEXIDINE GLUCONATE 2 % 1 PACK (2 CLOTHS) TOPICAL PRN; +DEXTROSE 5%-LACTATED RING INJ 1,000 ML IV SCH; +DORZ2SOL15 LEFT EYE; +LACTATED RINGER'S 1000 ML IV PRN; +METOPROLOL TARTRATE 25 MG TAB PO PRN; +POVIDONE IODINE 5% (ANTISEPSIS KIT) 4 APPLICATIONS EACH NARE PRN; +SODIUM CHLORID 0.9% 500 ML IV PRN
--- NOTE | 2018-01-28 11:28 | GIPROC ---
[facility] [address] [facility]. [facility], [address] FLEXIBLE SIGMOIDOSCOPY PROCEDURE REPORT EXAM DATE: 01/28/2018 PATIENT NAME: Elisha Seymour MR #: [id number] BIRTHDATE: 1930 ORDER #: [id number] ATTENDING: Wendy Martinez MD SIGHTSEEING GUIDE: Chao Thomason and Marlene Costa STATUS: outpatient INDICATIONS: The patient is a 88 yr old female here for a flexible sigmoidoscopy due to fu polyp anal verge/rectum-villous adenoma PROCEDURE PERFORMED: Flexible Sigmoidoscopy with ablation therapy MEDICATIONS: Per Anesthesia and None. ESTIMATED BLOOD LOSS: None CONSENT: The patient understands the risks and benefits of the procedure and understands that these risks include, but are not limited to: sedation, allergic reaction, infection, perforation and/or bleeding. Alternative means of evaluation and treatment include, among others: physical exam, x-rays, and/or surgical intervention. The patient elects to proceed with this endoscopic procedure. medical equipment was checked for proper function. Hand hygiene and appropriate measures for infection prevention was taken. After the risks, benefits and alternatives of the procedure were thoroughly explained, Informed consent was verified, confirmed and timeout was successfully executed by the treatment team. A digital rectal exam revealed external hemorrhoids The Pentax [id number] endoscope was introduced through the anus and advanced to the descending colon. The prep was good. The instrument was then slowly withdrawn as the colon was fully examined. COLON FINDINGS: Diverticulosis sigmoid,descending polyp anal verge - diminutive -remnant -s/p ablation using APC. Retroflexed views revealed internal hemorrhoid The scope was then completely withdrawn from the patient and the procedure terminated. ADVERSE EVENTS: There were no complications. IMPRESSIONS: 1. Diverticulosis sigmoid,descending polyp anal verge - diminutive -remnant -s/p ablation using APC 2. Retroflexed views revealed internal hemorrhoid 3. Revealed external hemorrhoids RECOMMENDATIONS: High fiber diet resume all medications including anticoagulation proctozone cream RECALL: Return 6 months Flexible Sigmoidoscopy Wendy Martinez MD eSigned: Wendy Martinez MD 01/28/2018 11:28 AM cc: Josr Mathews M.D. PATIENT NAME: Elisha Seymour MR#: [id number]
[2018-01-28 12:23] VITALS: BP 137/64; PULSE 70; RESP 18; TEMP 98.7; O2SAT 99
== END ==
LOC: HEND 07:42
PROVIDERS: ATTEND Internal Medicine Gastroenterology
DX: K62.1 Rectal polyp (principal); K64.4 Residual hemorrhoidal skin tags; K57.30 Diverticulosis of large intestine without perforation or abscess without bleeding; K64.8 Other hemorrhoids